=== PATIENT | male | born 1960 | race Caucasian/White ===

== ENCOUNTER 2017-07-19 03:12 | Observation (INO) ==
--- NOTE | 2017-07-19 05:47 | Diag Imaging Result Doc PS360 ---
EXAM: CT HEAD W/O CONTRAST HISTORY: cva TECHNIQUE: CT brain without. Dose reduction protocol. COMPARISON: 11/06/2014 FINDINGS: No parenchymal hemorrhage. No epidural or subdural hematoma. No subarachnoid hemorrhage. No mass identified on this noncontrasted exam. No hydrocephalus. No sinus opacification. IMPRESSION: No hemorrhage. Negative brain CT without contrast. A preliminary report was given at 3:47 AM Electronically signed by Shawn Lang 07/19/2017 5:45 AM
[2017-07-19] MEDS ORDERED: NS 1,000 ML IV ONE ×2 (06:17→13:23)
[2017-07-19 06:23] LABS: MANUAL DIFF NEEDED? NO
[2017-07-19 06:29] LABS: BASO% 0.4 % (0.0-0.8); EOS# 0.07 X1000 (0.0-0.7); EOS% 0.9 % (0.0-10.0); HEMOGLOBIN 16.3 g/dL (14.0-18.0); LYMPH# 1.52 X1000 (1.2-3.4); LYMPH% 19.4 % (20.5-51.1); MCH 31.3 PG (27-31); MCHC 34.7 g/dL (33-37); MCV 90.2 FL (81-99); MONO# 0.95 X1000 (0.11-0.59); MONO% 12.1 % (1.7-9.3); NEUT% 67.2 % (42.2-75.2); PLT 315 X1000 (130-400); RBC 5.21 XMIL (4.7-6.1)
--- NOTE | 2017-07-19 06:34 | Diag Imaging Result Doc PS360 ---
EXAM: CHEST-PORTABLE HISTORY: AMS TECHNIQUE: Portable AP COMPARISON: 11/06/2014 FINDINGS: The lungs are well expanded. The heart is not enlarged. The vessels are not distended. No pneumonia. No pleural effusions identified. There is a granuloma in the mid left lung. IMPRESSION: Negative chest Electronically signed by Shawn Lang 07/19/2017 6:32 AM
[2017-07-19 06:41] LABS: ALBUMIN 4.9 g/dL (3.5-5.0); CALCIUM 9.9 mg/dL (8.8-10.2); POTASSIUM 4.1 mmol/L (3.5-5.1); TOTAL BILIRUBIN 0.57 mg/dL (0.20-1.00); TOTAL PROTEIN 8.7 g/dL (6.3-8.3)
[2017-07-19 06:49] LABS: INR 0.96; PROTIME 10.1 Seconds (9.2-11.7); PTT 27.6 Seconds (22.0-36.0)
[2017-07-19 07:12] LABS: CK INDEX 1.2 (0.0-2.5); CK-MB 9.78 ng/mL (0.0-5.0)
--- NOTE | 2017-07-19 07:26 | PROVIDER DOCUMENTATION ---
HPI-Neurological Disorder - General Chief Complaint: Stroke-Like Symptoms Stated Complaint: POSS STROKE Time Seen by Provider: 07/19/17 06:07 Source: patient, family Allergies/Adverse Reactions: Patient Allergies Allergy/AdvReac Type Severity Reaction Status Date / Time No Known Allergies Allergy Verified 07/19/17 04:03 Home Medications: Home Medication List Medication Instructions Recorded Confirmed Last Taken Type Amlodipine [Norvasc] 10 mg PO DAILY 11/06/14 07/19/17 07/18/17 06:00 History Aspirin 325 mg PO DAILY 11/06/14 07/19/17 07/18/17 06:00 History Levothyroxine [Synthroid] 125 microgm PO DAILY 11/06/14 07/19/17 07/18/17 06:00 History Lisinopril/Hydrochlorothiazide 1 each PO DAILY 11/06/14 07/19/17 07/18/17 06:00 History [Lisinopril-Hctz 20-25 mg Tab] Simvastatin 20 mg PO QHS 11/06/14 07/19/17 11/05/14 18:00 History Amoxicillin 500 mg PO TID 07/19/17 07/19/17 07/18/17 06:00 History Clonidine [Catapres] 0.1 mg PO PRN PRN 07/19/17 07/19/17 Unknown History - History of Present Illness-Neuro Nature of Presenting Problem: Pt was last seen normal at 7PM last night. Woke up at 2AM with R facial dropping , could not talk and R sided numbness/weakness. H/o throat cancer X 20 years ago and pt has a trach. Reports headache dizziness as well. Headache Location: reports: global Severity: reports: moderate Onset/Duration: reports: this morning Timing: reports: improving Context: reports: none Approximate time patient was last seen normal?: 19:00 (7PM last night) Character of Altered Mental Status: reports: unchanged from baseline Any recent trauma/injury?: reports: none Character of Deficits: reports: new weakness, altered sensation, vision problem/ glaucoma, impaired speech. denies: impaired swallowing, decreased ability to stand, decreased ability to walk New weakness or altered sensation location:: reports: RUE, RLE Cognitive Baseline: alert, oriented x3 Gait Baseline: walks without assistance Associated Symptoms: reports: headache, dizziness, trouble walking, weakness. denies: fatigue, loss of consciousness Similar Symptoms Previously?: No Recently seen or treated by another doctor?: No - Seizure First time to have a seizure?: No Review of Systems - Adult - REVIEW OF SYSTEMS - ADULT Constitutional: reports: no symptoms reported Eyes: reports: no symptoms reported Ears, Nose, Mouth & Throat: reports: see HPI, hoarseness, other (See HPI) Cardiovascular: reports: no symptoms reported Respiratory: reports: no symptoms reported Gastrointestinal: reports: no symptoms reported Genitourinary: reports: no symptoms reported Musculoskeletal: reports: no symptoms reported Integumentary: reports: no symptoms reported Neurological: reports: see HPI, ataxia, dizziness/vertigo, headache/migraines, numbness, paresthesia, slurred speech. denies: syncope, tremors Psychiatric: reports: no symptoms reported Endocrine: reports: no symptoms reported Hematologic/Lymphatic: reports: no symptoms reported Allergic/Immunologic: reports: no symptoms reported All Other Systems: Reviewed and Negative Past History - Adult - PAST MEDICAL HISTORY-ADULT Review of Records: reports: Old Records Reviewed, Nursing Assessment Review, Medications Reviewed, Social history reviewed & non-contributory. Major Childhood Illnesses: reports: denies history Cardiovascular: reports: HTN, hyperlipidemia Respiratory: reports: other (throat cancer) - PRIOR SURGERIES/PROCEDURES Surgical/Procedure History: reports: appendectomy, orthopedic (extremity) (feet) , other (tracheostomy) - PRIOR HOSPITALIZATIONS Prior Hospitalizations: reports: for similar symptoms - IMMUNIZATION STATUS Childhood Immunizations: See Nurse Assessment Flu Vaccine: See Nurse Assessment - FAMILY HISTORY Family History: reviewed, not pertinent - SOCIAL HISTORY Smoking: cigarettes Substance Use: none/never Alcohol Use Frequency: never Living Situation: family Physical Exam- Neurological - Physical Exam-Neuro Initial Vital Signs Reviewed: Yes General Appearance: appears well, alert, no apparent distress HENMT: normocephalic/atraumatic, moist mucous membranes, normal ENT inspection Head Injury: no evidence of injury, active bleeding Neck: non-tender, full range of motion, supple Respiratory: chest non-tender, lungs clear, normal breath sounds, no pleuratic chest pain, no respiratory distress, no accessory muscle use Cardiovascular: normal peripheral pulses, regular rate, rhythm, no edema, no gallop Abdominal Exam: normal bowel sounds, non tender, soft, no organomegaly, no pulsatile mass, abdominal bruit Extremity: normal range of motion, non-tender, normal gait, normal inspection call center nurse Exam: normal hearing, normal speech Coordination/Gait: normal finger to nose, normal gait. negative: abnormal gait Motor/Sensory: no motor deficit, no sensory deficit, no pronator drift, negative Babinski's sign. negative: pronator drift (R), pronator drift (L), sensory deficit, weak motor strength RUE, weak motor strength LUE, weak motor strength RLE Neurologic: grossly normal, no motor/sensory deficits. negative: abnormal gait , facial droop, focal weakness, motor weakness, sensory deficit Integumentary: normal color, normal turgor, warm/dry Psych/Mental Status: normal mood/affect, normal thought content - Glascow Coma Scale Best Eye Response: (4) open spontaneously Best Verbal Response: (5) oriented Best Motor Response: (6) obeys commands Total Glascow Score: 15 Progress - PLAN OF CARE/RESULTS Progress/Plan/Lab Results: Vital Signs - 8 hr 07/19/17 03:16 07/19/17 05:03 Temperature 98.3 F 98.4 F Pulse Rate 97 H 75 Respiratory Rate 18 18 Blood Pressure 153/96 178/113 O2 Sat by Pulse Oximetry 99 96 Laboratory Results - last 24 hr 07/19/17 07/19/17 07/19/17 03:42 03:42 03:42 WBC RBC Hgb Hct MCV MCH MCHC RDW Std Deviation Plt Count MPV Immature Gran % (Auto) Neut % (Auto) Lymph % (Auto) [place] % (Auto) Eos % (Auto) Baso % (Auto) Immature Gran # (Auto) Neut # (Auto) Lymph # (Auto) [place] # (Auto) Eos # (Auto) Baso # (Auto) PT INR PTT (Actin FS) Sodium 134 L Potassium 4.1 Chloride 93 L Carbon Dioxide 23 L Anion Gap 18 BUN 24 H Creatinine 2.1 H Estimated GFR/1.73 m2 33 BUN/Creatinine Ratio 11 Glucose 87 Calculated Osmolality 272 Calcium 9.9 Magnesium Total Bilirubin 0.57 AST 45 H ALT 44 Alkaline Phosphatase 61 Creatine Kinase 833 H Creatine Kinase Index 1.2 CK-MB (CK-2) 9.78 H Troponin T < 0.010 Total Protein 8.7 H Albumin 4.9 Globulin 3.8 Albumin/Globulin Ratio 1.3 Plasma/Serum Ethyl Alc 07/19/17 07/19/17 07/19/17 03:42 03:42 03:42 WBC 7.83 RBC 5.21 Hgb 16.3 Hct 47.0 MCV 90.2 MCH 31.3 H MCHC 34.7 RDW Std Deviation 13.8 Plt Count 315 MPV 10.0 Immature Gran % (Auto) 0.0 Neut % (Auto) 67.2 Lymph % (Auto) 19.4 L [place] % (Auto) 12.1 H Eos % (Auto) 0.9 Baso % (Auto) 0.4 Immature Gran # (Auto) 0.00 Neut # (Auto) 5.26 Lymph # (Auto) 1.52 [place] # (Auto) 0.95 H Eos # (Auto) 0.07 Baso # (Auto) 0.03 PT 10.1 INR 0.96 PTT (Actin FS) 27.6 Sodium Potassium Chloride Carbon Dioxide Anion Gap BUN Creatinine Estimated GFR/1.73 m2 BUN/Creatinine Ratio Glucose Calculated Osmolality Calcium Magnesium 2.3 Total Bilirubin AST ALT Alkaline Phosphatase Creatine Kinase Creatine Kinase Index CK-MB (CK-2) Troponin T Total Protein Albumin Globulin Albumin/Globulin Ratio Plasma/Serum Ethyl Alc Orders Category Date Time Status Cardiac Monitoring DIRECTED Care 07/19/17 06:15 Active Saline Loc NOW Care 07/19/17 06:15 Active CHEST-PORTABLE [RAD] Stat Exams 07/19/17 06:[address] HEAD W/O CONTRAST [CT] Stat Exams 07/19/17 03:23 Completed ALCOHOL BLOOD Stat Lab 07/19/17 03:42 Completed CBC WITH ELECTRONIC DIFF [HEME] Stat Lab 07/19/17 03:42 Completed CK PROFILE [SP CHEM] Stat Lab 07/19/17 03:42 Completed COMPREHENSIVE METABOLIC PANEL [CHEM] Stat Lab 07/19/17 03:42 Completed MAGNESIUM [CHEM] Stat Lab 07/19/17 03:42 Completed PROTIME WITH INR [COAG] Routine Lab 07/19/17 03:42 Completed PTT [COAG] Routine Lab 07/19/17 03:42 Completed TROPONIN T Stat Lab 07/19/17 03:42 Completed URINALYSIS W/POSS RFLX CULT-1 [URINALYSIS] Stat Lab 07/19/17 06:56 Uncollected URINE DRUG SCREEN Stat Lab 07/19/17 06:56 Uncollected 0.9% Sodium Chloride Inj [Ns] 1,000 ml Med 07/19/17 06:17 Active IV 100 mls/hr Pulse Oximetry Stat Oth 07/19/17 06:15 Active EKG [EKG] Stat Ther 07/19/17 06:15 Ordered Result Diagrams: 07/19/17 03:42 07/19/17 03:42 - REASSESSMENT Reassessment #1 Time Reassessed: 07:27 Status: improving (Pt has been in our ER 3 hours before I walked into his room at 6:15AM - I started my shift at 6AM. Pt's symptoms resolved completely.) - XRAY 1 XRAY Study: Chest Impression: Normal - CT/MRI 1 CT Study: Head Impression: Normal Departure - Departure Date of Disposition Decision: 07/19/17 Time of Disposition Decision: 07:29 DIAGNOSIS: TIA (transient ischemic attack) Disposition: ADMITTED INPATIENT 09 Certified Medical Emergency: Emergent Condition: Stable Referrals and Follow-Ups: None,PCP [Primary Care Provider] - - Critical Care Note This patient required my direct & personal management of CC.: No Attestation - Physician/ NADER Attestation Patient care was provided by Advanced Practice Provider:: No The physician spent face to face time with patient:: Yes Advanced Practice Provider documentation review:: Supervising physician onsite and consulted in the evaluation and care of this patient. The physician did have a face to face encounter with the patient.
[2017-07-19 07:38] LABS: URINE CULTURE NEEDED? NO; URINE MICRO REVIEW NEEDED? NO; URINE SOURCE CLEAN CATCH
[2017-07-19] MEDS ORDERED: ZOFRAN IV PRN (07:55)
[2017-07-19 07:56] LABS: BILIRUBIN URINE NEGATIVE (NEGATIVE); BLOOD URINE TRACE (NEGATIVE); COLOR YELLOW; GLUCOSE URINE NEGATIVE (NEGATIVE); LEUKOCYTES URINE NEGATIVE (NEGATIVE); NITRITE URINE NEGATIVE (NEGATIVE); PH URINE 5.5; PROTEIN URINE 30 mg/dL (NEGATIVE); SP GRAVITY URINE 1.022; TURBIDITY URINE CLEAR (CLEAR); UROBILINOGEN URINE NORMAL (NORMAL)
[2017-07-19 07:57] LABS: UR EPITHELIAL CELLS <10 /HPF (<10); URINE BACTERIA NEGATIVE /HPF; URINE RBC <10 /HPF (<10); URINE WBC <10 /HPF (<10)
[2017-07-19] MEDS: LOVENOX SUBQ SCH (08:00)
[2017-07-19 08:03] LABS: UR AMPHETAMINES QUAL NONE DETECTED (NONE DETECT); UR BARBITUATES QUAL NONE DETECTED (NONE DETECT); UR BENZODIAZEPIN QUAL NONE DETECTED (NONE DETECT); UR CANNABINOIDS QUAL PRESUMPTIVE POSITIVE (NONE DETECT); UR COCAINE QUAL NONE DETECTED (NONE DETECT); UR METHADONE QUAL NONE DETECTED (NONE DETECT); UR OPIATES QUAL NONE DETECTED (NONE DETECT); UR OXYCODONE QUAL NONE DETECTED (NONE DETECT); UR PCP QUAL NONE DETECTED (NONE DETECT)
[2017-07-19] MEDS ORDERED: NORVASC PO SCH (09:14)
[2017-07-19] MEDS ORDERED: PRINIVIL PO SCH (09:14)
[2017-07-19] MEDS ORDERED: CATAPRES PO PRN (09:14)
[2017-07-19] MEDS ORDERED: HYDROCHLOROTHIAZIDE PO SCH (09:15)
[2017-07-19 09:52] LABS: HDL 50 mg/dL (35-55); LDL 157 mg/dL; TRIGLYCERIDES 320 mg/dL (39-160); VLDL 64 mg/dL
[2017-07-19 10:11] LABS: HEMOGLOBIN A1C 5.4 % (4.8-6.0)
--- NOTE | 2017-07-19 11:06 | CONSULTATION ---
DATE OF CONSULTATION: 07/19/2017 HISTORY OF PRESENT ILLNESS: Mr. Elise is 57 years old and there is question of stroke, TIA, migraine. History from the patient and his attentive family is that he had a headache through the day yesterday. He slept some and then woke up around 1:30 a.m. noticing weakness on the right side and difficulty speaking. He summoned his . She confirmed those problems. Headache was mostly bitemporal, pounding and throbbing, and persisted. There was never altered consciousness, altered awareness, memory gap. He may have had trouble understanding what was said to him temporarily but mostly had trouble expressing himself with speech. Speech is somewhat impaired at baseline because of previous throat cancer management. There is no history of previous stroke. He has never had an episode like this before. He has had occasional intense headaches but never headache associated with neurologic deficit. There is no history of recent head injury. He quit smoking cigarettes around 20 years ago when throat cancer was discovered. He does not have diabetes mellitus. He has been treated for dyslipidemia in the past. He has long-standing hypertension. He had stopped taking medicines including daily aspirin, several blood pressure pills, statin drug, several months ago. He resumed three blood pressure products, resumed daily aspirin, and added thyroid medicine about a week and a half ago. He reports primary clinic determined he did not need to resume his cholesterol medicine then. Workup here includes noncontrast CT of the head reported to show nothing remarkable, nothing focal or acute. I do not have access to other records at this point. Computer terminal that I was using stopped allowing me to view the hospital record on computer. I do not know about his presenting blood pressures, other vital signs, lab reports, other workup. I did review the emergency room report. PHYSICAL EXAMINATION: On exam now, Mr. Elise is awake, alert, attentive and appropriate. Speech is a little bit difficult to mold holder but seems to be baseline and family agrees with that. I do not detect a definite dysarthria. Language function is intact on careful bedside testing of repeating, naming, comprehension, fluency. He was able to follow simple and complicated commands. He followed commands requiring right/left distinction and digit distinction. I did not test reading or handwriting. Memory is good. Head is unremarkable. There is no meningismus. Visual pond are full tested by confrontational finger counting. Extraocular movements are full. Facial motility seems equal to me. There is some slight asymmetry of nasolabial fold but nothing really remarkable. One family member believes the current facial appearance may be a little bit different from baseline but other family members are not certain about that. Gag is intact. Tongue is midline. He can hear. Shoulder shrug is good bilaterally. Strength is normal in the arms and legs. There is no pronator drift. Tone is equal in the limbs. He did well on finger-to- nose testing bilaterally. He reports equal pinprick appreciation over the limbs. Proprioception is good at the great toe MTP joint bilaterally. Reflexes are 1+ at the ankles and 1+ at the wrists, all symmetric. Plantar response is silent bilaterally. I did not test his gait. IMPRESSION/PLAN: Transient right hemiparesis and likely dysphasia associated with headache. I do not find definite persistent deficit now. Duration of deficit was longer than typical for TIA, but still less than [address] is reassuring. I think brain MRI would be reasonable when available to be more certain. If not already ordered, we can get usual vascular workup with carotid imaging and echocardiogram. I do not have computer record access now and I do not know if he has had lipid profile recently. If not, we can check that. I would permit moderately elevated blood pressure short term until we have results of workup. Otherwise, would follow him clinically and continue monitoring. Thanks for asking me to see Mr. Elise. cc: MD KATIE Choi III
[2017-07-19] MEDS: SYNTHROID PO SCH (11:20)
[2017-07-19] MEDS: PRILOSEC PO SCH (11:20)
[2017-07-19] MEDS: ASPIRIN PO SCH (11:21)
--- NOTE | 2017-07-19 12:05 | Diag Imaging Result Doc PS360 ---
EXAM: MRI BRAIN W/O CONTRAST, MRA NECK W/O CONT, MRA BRAIN W/O CONTRAST INDICATION: stroke COMPARISON: CT head dated 07/19/2017. No prior MRIs available for comparison. MRI BRAIN: FINDINGS: There is no evidence of acute infarct. 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 There are a few tiny foci of T2/FLAIR hyperintensity in the periventricular and subcortical white matter, mainly on the left. This is most consistent with minimal microangiopathy. There is no discrete intracranial mass, mass effect, or intracranial hemorrhage. There is a right mastoid air cell effusion. There are a couple tiny mucus retention cysts in the left maxillary sinus. Surrounding soft tissues and bony structures are essentially unremarkable, otherwise. IMPRESSION: 1.No evidence of acute infarct or other definite acute intracranial pathology. 2.Suggestion of minimal white matter microangiopathy. 3.Congenital absence of the septum pellucidum. MRA BRAIN: FINDINGS: There is signal dropout involving the intracranial portion of the right ICA indicating occlusion. The distal left ICA is patent. The right MCA is being supplied via collateral flow from the right posterior communicating artery. The A1 segment of the right SATYA is very hypoplastic. Although there is significant motion artifact throughout the courses of the ACAs, they appear to remain patent. There is no evidence of flow-limiting stenosis involving the remainder of the arteries comprising the [place] including the assembler bonding and MCAs. No cerebral aneurysms or vascular malformations are appreciated, otherwise. IMPRESSION: Occlusion of the visualized intracranial segment of the right ICA as described. MRA NECK: FINDINGS: The vertebral arteries are codominant and are widely patent throughout the courses. There is signal dropout involving the entire right ICA indicating complete occlusion. There is near complete signal dropout involving a short segment of the left ICA that begins approximately 1.5 cm distal to the bifurcation indicating high-grade stenosis/subtotal occlusion. However, the left ICA is reconstituted about 2 cm distal to this. Thereafter, it remains patent throughout. Both CCAs are patent. No aneurysm or vascular malformation is appreciated. IMPRESSION: 1.Complete occlusion of the right ICA. 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 3.Consider evaluation with a CTA of the neck if not contraindicated. Electronically signed by Igor Orozco 07/19/2017 12:03 PM
--- NOTE | 2017-07-19 13:15 | HISTORY AND PHYSICAL ---
PRIMARY CARE PHYSICIAN: None. CHIEF COMPLAINT: Loss of speech, right facial drooping, numbness and right arm numbness. HISTORY OF PRESENT ILLNESS: Mr. Elise is a 57-year-old male who carries a past medical history of throat cancer 20 years ago, status post a tracheostomy, still has a stoma, hypertension, hyperlipidemia, hypothyroidism. The patient presented to the ED after waking up around 1:30 in the morning. He said he lost his speech. He had right-sided facial numbness. He felt like the right side of his face was drooping and he lost feeling in his right arm as well as movement. These symptoms lasted about an hour and they all completely resolved when he got to the ED except he felt like he could still not talk right but that has since resolved. He underwent head CT that was negative. Brain MRI, brain MRA and neck MRA showed no acute stroke however it does show a complete occlusion of the right ICA and high-grade stenosis and occlusion involving a short segment of the proximal left ICA. Dr. Dash was consulted and had seen the patient prior to the MRI, MRA imaging. Laboratory data, triglycerides were 320. Cholesterol was 271. TSH was 1311, BUN 24, creatinine 2.1. We will go ahead and check carotid Dopplers along with echocardiogram and a surgical consult. PAST MEDICAL HISTORY: 1. Throat cancer 20 years ago status post trach with stoma. 2. Hypertension. 3. Hyperlipidemia. 4. Hypothyroidism. PAST SURGICAL HISTORY: 1. Appendectomy. 2. Tracheostomy. SOCIAL HISTORY: Patient quit smoking cigarettes 20 years ago when he got diagnosed with throat cancer. REVIEW OF SYSTEMS: Ten point review of systems completely negative except for those mentioned in HPI. The patient denies any chest pain, any shortness of breath, any dizziness. No nausea. No vomiting. He did report a headache throughout most of the day yesterday. Reported a throbbing persistent. Per the family he is back to his baseline. His speech is somewhat impaired or difficult to understand secondary to him having a trach. PHYSICAL EXAM: VITAL SIGNS: Temperature is 98.1 degrees, heart rate 68, respirations 14, blood pressure 138/87, O2 is 99% on room air. GENERAL: Mr. Elise is a 57-year-old male who is sitting up in bed, in no acute distress. HEENT: Atraumatic normocephalic. PERRL. NECK: Is supple. Trachea is midline. He does have a stoma covered. Tongue is midline. CARDIOVASCULAR: S1, S2 appreciated. No murmurs, gallops or rubs noted. PULMONARY: Bilateral breath sounds. No rales. No rhonchi noted. No wheezes. ABDOMEN: Is soft, nontender, nondistended. Positive bowel sounds 4 quadrants. NEUROLOGIC: The patient is sitting up in bed. He is awake. He is alert. He is oriented. He follows commands. He was all extremities. His speech just secondary to him having a trach is somewhat difficult to understand but he is appropriate. He does answer all questions. His family seems to think that he is back at his baseline. He has recovered all sensation. SKIN: Appears to be warm, dry and intact. LABORATORY DATA: White count 7, hemoglobin 16, hematocrit 47, platelet count is 315,000. Chemistries: Sodium 134, potassium 4.1. BUN is 24. Creatinine is 2.1. Blood glucose is 87. Triglyceride 320. Cholesterol 271. TSH is 1311. Urine is negative. Tox screen is positive for cannabis. ASSESSMENT AND PLAN: 1. TIA. MRI imaging revealed complete occlusion of the right ICA with high- grade stenosis and subtotal occlusion involving the short segment of the proximal left ICA. Neuro is on board. We will continue with echocardiogram, carotids, do a surgical consult. Continue with daily aspirin and statin. We will continue with aspirin and probably add another oral anticoagulant. We will continue with neuro checks q.4 hours. 2. Hypertension. We will allow for permissive hypertension for 24 hours. 3. Dyslipidemia. Continue statin. 4. Hypothyroidism. The patient has recently put himself back on his thyroid medications. 5. History of throat cancer status post tracheostomy with stoma. Aware. 6. Further recommendations to follow hospital course and physician evaluations. I have personally performed a face to face diagnostic evaluation on this patient , also I reviewed this patient lab work and, images and vital signs, I agree with the assessment and plan, also I will probably involve surgery, this patient has severe problems/obstruction at the carotids, since he is having a TIA I will not restart blood pressure medication yet , Dr Tyler Roth Dictated by LUZ Henry for Tyler Anderson MD cc: Tyler Anderson MD [facility]
--- NOTE | 2017-07-19 14:20 | HISTORY AND PHYSICAL ---
ADDENDUM TO ASSESSMENT AND PLAN: Acute kidney injury on possible chronic kidney disease. We will start the patient on IV fluids and recheck a.m. labs. Dictated by LUZ Henry for Tyler Anderson MD cc: Tyler Anderson MD
[2017-07-19] MEDS: NS 1,000 ML IV SCH (16:11)
--- NOTE | 2017-07-19 18:25 | ECHO REPORT ---
ORDER DATE: 07/19/2017 INDICATION: Stroke, hypertension, hyperlipidemia. FINDINGS: 1. Right atrium is mildly enlarged at 4.2 cm. 2. Trace tricuspid regurgitation. RV systolic pressure of 30. 3. Normal RV size and systolic function. 4. Trace pulmonic insufficiency. 5. Normal left atrial size at 3.5. 6. No mitral prolapse. Trace mitral regurgitation. 7. Normal LV size, end-diastolic dimension of 5 cm. Normal wall thicknesses with a posterior and interventricular septal wall thickness of 0.9 and 1.0 cm respectively. Normal LV systolic function. Calculated EF 64%. 8. Aortic valve opens well. No evidence of stenosis or insufficiency. 9. Aorta appears normal in visualized portions. 10. No pericardial effusion seen. 11. Definity echo contrast was used for endocardial border definition. cc: MD Kyaw Her MD
[2017-07-19] MEDS ORDERED: ZOCOR PO SCH (21:00)
[2017-07-20 05:09] VITALS: BP 140/78
[2017-07-20] MEDS: NS 1,000 ML IV SCH (05:44)
[2017-07-20 06:44] LABS: MANUAL DIFF NEEDED? NO
[2017-07-20 06:52] LABS: BASO% 0.5 % (0.0-0.8); EOS# 0.12 X1000 (0.0-0.7); EOS% 2.1 % (0.0-10.0); HEMATOCRIT 43.8 % (42.0-52.0); HEMOGLOBIN 15.1 g/dL (14.0-18.0); LYMPH# 1.05 X1000 (1.2-3.4); LYMPH% 18.7 % (20.5-51.1); MCH 31.5 PG (27-31); MCHC 34.5 g/dL (33-37); MCV 91.4 FL (81-99); MONO# 0.59 X1000 (0.11-0.59); MONO% 10.5 % (1.7-9.3); MPV 9.5 FL (7.4-10.4); NEUT% 68.2 % (42.2-75.2); PLT 238 X1000 (130-400); RBC 4.79 XMIL (4.7-6.1)
[2017-07-20 07:20] LABS: AGAP 11; BUN 15 mg/dL (8-22); CALCIUM 8.3 mg/dL (8.8-10.2); CHLORIDE 96 mmol/L (98-107); COSMO 266; POTASSIUM 4.2 mmol/L (3.5-5.1); SODIUM 132 mmol/L (136-145); TCO2 25 mmol/L (25-35)
--- NOTE | 2017-07-20 08:23 | CONSULTATION ---
DATE OF CONSULTATION: 07/20/2017 REASON FOR CONSULTATION: Consult concerning carotid stenosis. REQUESTING PHYSICIAN: [facility]. HISTORY OF PRESENT ILLNESS: A 57-year-old male with past medical history of what sounds like laryngeal cancer, status post laryngectomy with permanent tracheostomy who is presenting now with change in his speech and right-sided facial numbness and facial droop. There was concern that he might have had a TIA. Neurology was consulted. He also had multiple imaging studies, one of which was an MRI, which showed complete occlusion of the right internal carotid and high-grade stenosis of the left. He currently has an ultrasound of his carotid arteries pending, but I did discuss it with the vascular ultrasound technologist and it is essentially with the MRA, suggested of complete occlusion on the right and severe stenosis on the left. He is currently resolved from his neurologic symptoms and having no major issues. I was asked to weigh an opinion. PAST MEDICAL HISTORY: Includes: 1. Laryngeal cancer. 2. Hypertension. 3. Hyperlipidemia. 4. Hypothyroidism. PAST SURGICAL HISTORY: Includes: 1. Appendectomy. 2. Laryngectomy. SOCIAL HISTORY: The patient is a former smoker. FAMILY HISTORY: Reviewed with the patient but noncontributory. REVIEW OF SYSTEMS: A full 10-point review of systems obtained and negative except as specified in the HPI. ALLERGIES: None. HOME MEDICATIONS: Reviewed and MAR reviewed. PHYSICAL EXAMINATION: Vital Signs: Patient is currently afebrile. His vital signs stable. General: No acute distress. male, looks stated age. HEENT: Normocephalic, atraumatic. Pupils equal, round, reactive to light. Mucous membranes moist. Oropharynx benign. Neck: Supple. Tracheostomy present. Cardiovascular: Regular rate and rhythm. Lungs: Grossly clear. Abdomen: Soft, nontender, nondistended. Extremities: Moves all extremities. Neurologic: Grossly intact. I see no focal deficits at this time. Skin: No signs of jaundice. Vascular: All extremities perfused. LABORATORY: From his hospitalization reviewed, and from this morning reviewed. IMAGING: Reviewed and noted above. ASSESSMENT AND PLAN: A 57-year-old male with a recent transient ischemic attack, with severe carotid disease with complete occlusion on the right and severe stenosis on the left. 1. Recent transient ischemic attack with carotid disease. At this time, the patient likely needs some kind of intervention on the left side. His right side is completely occluded. Given his previous laryngectomy, his surgical incision might be difficult, and I will have to discuss with some of my partners about the best approach. He may need to have something considered for carotid stent, given the operative field that we would encounter, but again I will discuss this with some of my partners. Regardless, we would need to wait at least 6 weeks before we do any intervention. He is neurologically intact at this time. I am more than willing to see him in my office once he is discharged. 2. Multiple medical comorbidities currently being managed by the Hospitalist Service. I appreciate the consult. Again, the patient can follow up with me in the office. cc: Qamar Avalos MD
[2017-07-20] MEDS ORDERED: PRINIVIL PO SCH (09:00)
[2017-07-20] MEDS: PRILOSEC PO SCH (10:57)
[2017-07-20] MEDS: ASPIRIN PO SCH (10:57)
[2017-07-20] MEDS: SYNTHROID PO SCH (10:57)
[2017-07-20] MEDS: LOVENOX SUBQ SCH (10:57)
--- NOTE | 2017-07-20 17:49 | Carotid Study ---
DATE: 07/19/2017 PROCEDURE: Carotid duplex imaging. REFERRING PHYSICIAN: Dr. Avlaos INTERPRETING PHYSICIAN: Dr. Avalos TECH: Richard INDICATIONS: Stenosis. Comparison study for MRA of the neck with contrast. OBSERVED DATA RIGHT LEFT Brachial Blood Pressure Carotid Pulse Bruits: Carotid/Sub DIAGRAM OF ULTRASOUND IMAGING R L RIGHT INT EXT INT EXT LEFT Foster (cm/s) Foster (cm/s) Subclavian 150/0 Subclavian 103/0 CCA Proximal Not measured CCA Proximal 83/17 CCA Distal 100/9 CCA Distal 58/17 Bulb 38/11 Bulb 47/17 ICA Proximal 0/0 ICA Proximal 293/126, 302/120 ICA Mid 0/0 ICA Mid 82/23 ICA Distal 0/0 ICA Distal 31/16 ECA 168/31 ECA 178/42 Vertebral 36/28 A Vertebral 55/22 A ICA/CCA Ratio 0.00 ICA/CCA Ratio 3.63 % Stenosis Completely occluded % Stenosis 80 to 99 FINDINGS: Technically limited study secondary to the patient's permanent tracheostomy in place which limits the ability to view all the entirety of the carotid, but there appears to be an occluded right internal carotid artery and critical stenosis noted in the left. This is similar to what was found on MRA done earlier in the day. PHYSICIAN INTERPRETATION: Occlusion of the right internal carotid artery with high grade and critical stenosis on the left, although this is a limited study. This corresponds with what was found on the MRA. cc: Qamar Avalos MD
--- NOTE | 2017-07-21 05:12 | DISCHARGE SUMMARY ---
ADMISSION DATE: 07/19/2017 DISCHARGE DATE: 07/20/2017 DISCHARGE DIAGNOSES: 1. Transient ischemic attack. MRI revealed complete occlusion of the right internal carotid artery with right great stenosis and subtotal occlusion involving the short segment of the proximal left internal carotid artery. 2. Hypertension. 3. Dyslipidemia. 4. Hypothyroidism. 5. History of throat cancer, status post tracheostomy with stoma, laryngectomy. 6. Acute kidney injury, resolved. CONSULTS: Neurology department with Dr. Dash and surgery department with Dr. Avalos. HISTORY OF PRESENT ILLNESS: A 57-year-old, male with a past medical history of throat cancer, hypertension, hyperlipidemia, hypothyroidism. Presented to the emergency department after waking up around 1:30 in the morning and apparently he lost his speech. He had right side facial numbness and right arm weakness as well. The symptoms lasted about 1 hour and then they completely resolved except that when he got to the emergency department, he felt like he could not still talk right but after a few moments, that resolved as well. He underwent a CT scan of the head that was negative. Brain MRA and neck MRA showed no acute stroke. However, it does show a complete occlusion of the right ICA and high-grade stenosis and occlusion involving a short segment of the proximal left ICA. Dr. Dash has been consulted and also Dr. Avalos has been consulted. Dr. Avalos wants to follow this patient up in about 6 weeks to evaluate the possibility of intervention of the left side. He will talk to the surgical team to decide what kind of intervention he will do if able. Today, this patient was completely fine. This is his baseline. He was not complaining of weakness. Family members at the bedside, they all understand the situation and they all agree with the treatment. This patient will be discharged today with strict followup by his primary care doctor. Also, follow with Dr. Avalos in 5-6 weeks. Also, the want to follow with neurosurgery to see if they need to do something else. PHYSICAL EXAMINATION: Vital Signs: Temperature 98.3 degrees, pulse 60, respiratory rate 13, blood pressure 140/78, oxygen saturation 100% on room air. HEENT: Head normocephalic. No trauma. PERRLA. Neck: Supple. No JVD. He has an ostomy from previous tracheostomy. Supple. No JVD. Chest: Clear to auscultation. No wheezing. No rales. Abdomen: Soft, nontender. Extremities: No edema. No clubbing. No cyanosis. No weakness. Neurological Examination: The patient is alert and oriented x3. No focal deficits. LABORATORY DATA: WBC 5.6, hemoglobin 15.1, hematocrit 43.8, platelets 238,000. Sodium 132, potassium 4.2, chloride 96, bicarbonate 25, BUN 15, creatinine 1.1, glucose 117, calcium 8.3. FOLLOWUP: Follow up with his primary care doctor in 1 week. Follow up with Dr. Avalos in 5-6 weeks. DISCHARGE MEDICATIONS: 1. Simvastatin 20 mg p.o. at bedtime. 2. Lisinopril/hydrochlorothiazide 20/25 mg p.o. daily. 3. Synthroid 125 mcg p.o. daily. 4. Clonidine 0.1 mg p.o. p.r.n. hypertension. 5. Aspirin 325 mg p.o. daily. 6. Amlodipine 10 mg p.o. daily. TIME DISCHARGING THIS PATIENT: About 35 minutes. cc: Tyler Anderson MD
== END 2017-07-20 12:15 | disposition home or self-care (01) ==
LOC: ED 03:12 → 3N 03:12
PROVIDERS: ATTEND Internal Medicine